=== PATIENT | female | born 1995 | race Caucasian/White ===

== ENCOUNTER 2019-07-18 18:09 | Inpatient (IN) ==
[2019-07-18] MEDS ORDERED: 0.9 % Sodium Chloride 1,000 ML IVC ONE (18:17)
[2019-07-18] MEDS ORDERED: Ketorolac 30 MG/ML VIAL IVP ONE (18:17)
[2019-07-18] MEDS ORDERED: Ondansetron 4 MG/2 ML VIAL IVP ONE (18:17)
[2019-07-18 18:45] LABS: Clarity,Urine Slightly Cloudy (Clear); Color,Urine Amber (Yellow)
[2019-07-18 18:50] LABS: Basophils % 0.2 %; Eosinophils # 0.2 K/mcL (0.0-0.6); Eosinophils % 1.1 %; Hematocrit 35.5 % (35.3-44.9); Immature Granulocytes % 0.8 % (0-4); Lymphocytes # 1.6 K/mcL (0.6-4.6); Lymphocytes % 8.1 %; Mean Corpuscular HGB Conc 33.8 g/dL (31.6-35.5); Mean Corpuscular Volume 82.8 fL (83.0-100.0); Mean Platelet Volume 9.2 fL (9.4-12.4); Monocytes # 1.4 K/mcL (0.0-1.3); Monocytes % 6.9 %; Platelet Count 155 K/mcL (140-400); Red Blood Count 4.29 M/mcL (3.82-4.97); Red Cell Distribution Width 12.9 % (11.5-14.5); Segmented Neutrophils % 82.9 %; White Blood Count 19.8 K/mcL (4.3-11.1)
[2019-07-18 18:53] LABS: Bacteria,Urine Few per hpf (None-Few); Mucus,Urine Few (Few); RBC,Urine 15-30 per hpf (0-3); Squamous Epithelial Cell,Urine Few per lpf (None-Few)
[2019-07-18 18:55] LABS: Neutrophils # 16.4 K/mcL (1.6-8.9)
[2019-07-18 19:05] LABS: BUN/Creatinine Ratio 12 (6-26); Blood Urea Nitrogen 7 mg/dL (6-20); Calcium 8.8 mg/dL (8.6-10.3); Carbon Dioxide 21 mEq/L (23-29); Chloride 100 mEq/L (98-107); Glucose 139 mg/dL (70-105); Osmolality,Calculated 268 (280-300); Potassium 3.1 mEq/L (3.5-5.1); Sodium 129 mEq/L (136-145); eGFR For African Americans > 60 (> 60); eGFR For Non-African Americans > 60 (> 60)
[2019-07-18] MEDS ORDERED: Potassium Chloride Elixir 20 MEQ/15 ML UDC PO ONE (19:15)
[2019-07-18] MEDS ORDERED: 0.9 % Sodium Chloride 1,000 ML IVC STA (19:29)
[2019-07-18] MEDS ORDERED: Naloxone 0.4 MG/ML INJ IVP PRN (20:03)
[2019-07-18] MEDS ORDERED: Ondansetron 4 MG/2 ML VIAL IVP PRN (20:03)
[2019-07-18] MEDS: 0.9 % Sodium Chloride 1,000 ML IVC SCH (20:21)
[2019-07-18] MEDS: (Buprenorphine Hcl/Naloxone Hcl [Suboxone 8 Mg-2 Mg SL) PO SCH (22:16)
[2019-07-19] MEDS: 0.9 % Sodium Chloride 1,000 ML IVC SCH (00:21)
[2019-07-19] MEDS: (Buprenorphine Hcl/Naloxone Hcl [Suboxone 8 Mg-2 Mg SL) PO SCH ×5 (04:00→16:30)
[2019-07-19 06:32] LABS: Hematocrit 31.9 % (35.3-44.9); Hemoglobin 10.5 g/dL (11.5-15.4); Mean Corpuscular HGB Conc 32.9 g/dL (31.6-35.5); Mean Corpuscular Hemoglobin 27.9 pg (28.0-33.3); Mean Corpuscular Volume 84.8 fL (83.0-100.0); Mean Platelet Volume 10.3 fL (9.4-12.4); Platelet Count 149 K/mcL (140-400); Red Blood Count 3.76 M/mcL (3.82-4.97); Red Cell Distribution Width 13.2 % (11.5-14.5); White Blood Count 13.9 K/mcL (4.3-11.1)
[2019-07-19 06:57] LABS: BUN/Creatinine Ratio 10 (6-26); Blood Urea Nitrogen 6 mg/dL (6-20); Carbon Dioxide 22 mEq/L (23-29); Chloride 108 mEq/L (98-107); Glucose 89 mg/dL (70-105); Osmolality,Calculated 277 (280-300); Sodium 135 mEq/L (136-145); eGFR For African Americans > 60 (> 60); eGFR For Non-African Americans > 60 (> 60)
[2019-07-19] MEDS ORDERED: Ibuprofen 600 MG TABLET PO ONE (10:34)
[2019-07-19] MEDS: Nicotine 14 MG PATCH.TD24 TD SCH (14:15)
[2019-07-19 20:18] LABS: % Iron Saturation 5 % (15-50); Iron 14 mcg/dL (50-170); Transferrin 213 mg/dL (203-362)
[2019-07-19 20:37] LABS: Ferritin 131 ng/mL (10-120)
[2019-07-19] MEDS: Lactobacillus 1 EACH CAP.SPRINK PO SCH (21:37)
[2019-07-19] MEDS: *HR* Buprenorphine HCl 8 MG TAB.SUBL SL SCH (21:37)
[2019-07-19] MEDS: Ibuprofen 600 MG TABLET PO PRN (21:47)
[2019-07-20] MEDS: *HR* Buprenorphine HCl 8 MG TAB.SUBL SL SCH ×2 (04:49→06:51)
[2019-07-20 06:50] VITALS: BP 107/74
[2019-07-20 06:53] LABS: Basophils % 0.3 %; Eosinophils # 0.3 K/mcL (0.0-0.6); Eosinophils % 2.7 %; Hematocrit 33.3 % (35.3-44.9); Hemoglobin 10.9 g/dL (11.5-15.4); Immature Granulocytes % 0.4 % (0-4); Lymphocytes # 1.9 K/mcL (0.6-4.6); Lymphocytes % 19.1 %; Mean Corpuscular HGB Conc 32.7 g/dL (31.6-35.5); Mean Corpuscular Hemoglobin 27.7 pg (28.0-33.3); Mean Corpuscular Volume 84.7 fL (83.0-100.0); Mean Platelet Volume 9.9 fL (9.4-12.4); Monocytes # 0.7 K/mcL (0.0-1.3); Monocytes % 6.8 %; Neutrophils # 6.9 K/mcL (1.6-8.9); Platelet Count 180 K/mcL (140-400); Red Blood Count 3.93 M/mcL (3.82-4.97); Red Cell Distribution Width 13.3 % (11.5-14.5); Segmented Neutrophils % 70.7 %; White Blood Count 9.7 K/mcL (4.3-11.1)
[2019-07-20] MEDS: Ibuprofen 600 MG TABLET PO PRN ×2 (06:54→08:24)
[2019-07-20 07:36] LABS: BUN/Creatinine Ratio 7 (6-26); Blood Urea Nitrogen 4 mg/dL (6-20); Calcium 8.7 mg/dL (8.6-10.3); Carbon Dioxide 25 mEq/L (23-29); Chloride 107 mEq/L (98-107); Glucose 87 mg/dL (70-105); Osmolality,Calculated 286 (280-300); Potassium 3.6 mEq/L (3.5-5.1); Sodium 140 mEq/L (136-145); eGFR For African Americans > 60 (> 60); eGFR For Non-African Americans > 60 (> 60)
[2019-07-20] MEDS: Nicotine 14 MG PATCH.TD24 TD SCH (08:25)
[2019-07-20] MEDS: Lactobacillus 1 EACH CAP.SPRINK PO SCH (08:25)
== END 2019-07-20 11:17 | disposition home or self-care (01) | DRG 463 ==
LOC: INPPIK 18:09 → EMEROOPIK 18:09 → INPPIK 20:00
PROVIDERS: ADMIT Internal Medicine; ATTEND Internal Medicine

== ENCOUNTER 2020-05-19 11:05 | Inpatient (IN) ==
[2020-05-19 11:41] LABS: Basophils % 0.1 %; Hematocrit 38.3 % (35.3-44.9); Hemoglobin 12.8 g/dL (11.5-15.4); Immature Granulocytes % 0.6 % (0-4); Lymphocytes # 0.7 K/mcL (0.6-4.6); Lymphocytes % 3.9 %; Mean Corpuscular HGB Conc 33.4 g/dL (31.6-35.5); Mean Corpuscular Hemoglobin 28.4 pg (28.0-33.3); Mean Corpuscular Volume 84.9 fL (83.0-100.0); Mean Platelet Volume 9.3 fL (9.4-12.4); Monocytes # 0.7 K/mcL (0.0-1.3); Monocytes % 4.3 %; Neutrophils # 15.2 K/mcL (1.6-8.9); Platelet Count 210 K/mcL (140-400); Red Blood Count 4.51 M/mcL (3.82-4.97); Red Cell Distribution Width 13.4 % (11.5-14.5); Segmented Neutrophils % 91.1 %; White Blood Count 16.7 K/mcL (4.3-11.1)
[2020-05-19] MEDS ORDERED: Ipratropium/Albuterol Neb 3 ML IH ONE ×3 (11:51→15:12)
[2020-05-19 12:00] LABS: Alanine Aminotransferase 9 Units/L (7-52); Albumin 4.4 g/dL (3.5-5.7); Albumin/Globulin Ratio 1.6 (1.1-2.2); Alkaline Phosphatase 74 Units/L (34-104); Aspartate Amino Transferase 20 Units/L (13-39); BUN/Creatinine Ratio 13 (6-26); Bilirubin,Total 0.6 mg/dL (0.3-1.0); Blood Urea Nitrogen 7 mg/dL (6-20); Carbon Dioxide 24 mEq/L (23-29); Chloride 102 mEq/L (98-107); Globulin 2.8 g/dL (2.4-3.5); Glucose 142 mg/dL (70-105); Magnesium 1.7 mg/dL (1.6-2.6); Osmolality,Calculated 284 (280-300); Potassium 4.1 mEq/L (3.5-5.1); Sodium 137 mEq/L (136-145); Total Protein 7.2 g/dL (6.4-8.9); eGFR For African Americans > 60 (> 60); eGFR For Non-African Americans > 60 (> 60)
[2020-05-19 12:01] LABS: Troponin I < 0.03 ng/mL (< 0.04)
[2020-05-19 12:06] LABS: Prothrombin Time 11.4 Seconds (9.4-12.1)
[2020-05-19] MEDS ORDERED: Ipratropium/Albuterol Neb 3 ML ONE (12:08)
[2020-05-19 13:32] LABS: ABG Base Excess -2 mEq/L (-2 to 3); ABG HCO3 23 mEq/L (21-27); ABG Oxygen Saturation 91 % (95-98); ABG PCO2 37 mmHg (35-45); ABG PO2 60 mmHg (85-104); ABG TCO2 24 mEq/L (20-26)
[2020-05-19] MEDS ORDERED: 0.9 % Sodium Chloride 1,000 ML IV ONE (14:40)
[2020-05-19] MEDS ORDERED: Ketorolac 30 MG/ML VIAL IVP ONE (14:42)
[2020-05-19] MEDS ORDERED: Ondansetron 4 MG/2 ML VIAL IVP ONE (14:59)
[2020-05-19] MEDS ORDERED: cefTRIAXone 1,000 MG in 0.9 % Sodium Chloride Mini Bag 100 ML IVPB ONE (15:12)
[2020-05-19] MEDS ORDERED: methylPREDNISolone 125 MG/2 ML VIAL IVP ONE (15:12)
[2020-05-19 15:57] LABS: Adenovirus Not Detected (Not Detect); Bordetella Pertussis Not Detected (Not Detect); Chlamydophila pneumoniae Not Detected (Not Detect); Coronavirus 229E Not Detected (Not Detect); Coronavirus HKU1 Not Detected (Not Detect); Coronavirus NL63 Not Detected (Not Detect); Coronavirus OC43 Not Detected (Not Detect); Human Metapneumovirus Not Detected (Not Detect); Human Rhinovirus/Enterovirus DETECTED (Not Detect); Influenza A Subtype 2009 H1 Not Detected (Not Detect); Influenza B Not Detected (Not Detect); Mycoplasma pneumoniae Not Detected (Not Detect); Parainfluenza Virus 1 Not Detected (Not Detect); Parainfluenza Virus 2 Not Detected (Not Detect); Parainfluenza Virus 3 Not Detected (Not Detect); Parainfluenza Virus 4 Not Detected (Not Detect); Respiratory Syncytial Virus Not Detected (Not Detect); SARS-CoV-2 Not Detected (Not Detect)
[2020-05-19] MEDS: 0.9 % Sodium Chloride 1,000 ML IVC SCH (16:03)
[2020-05-19] MEDS ORDERED: Naloxone 0.4 MG/ML INJ IVP PRN (16:49)
[2020-05-19] MEDS ORDERED: MOM Conc 10 ML UD.LIQ PO PRN (16:49)
[2020-05-19] MEDS ORDERED: Acetaminophen 325 MG TABLET PO PRN (16:49)
[2020-05-19] MEDS ORDERED: Ondansetron 4 MG/2 ML VIAL IVP PRN (16:49)
[2020-05-19] MEDS ORDERED: Mag Hydrox/Al Hydrox/Simeth 30 ML UDC PO PRN (16:49)
[2020-05-19] MEDS ORDERED: Albuterol 2.5 MG/3 ML NEBULIZER IH PRN (16:54)
[2020-05-19] MEDS ORDERED: Isovue-370 500 ML BOTTLE IVP ONE (16:58)
[2020-05-19] MEDS: BUPRENORPHINE NALOXONE PO SCH ×2 (17:54→23:11)
[2020-05-19] MEDS: Nicotine 14 MG PATCH.TD24 TD SCH (18:05)
[2020-05-19] MEDS: MethylPREDNISolone 40 MG/ML VIAL IVP SCH (18:05)
[2020-05-19] MEDS: Ipratropium/Albuterol Neb 3 ML IH SCH (19:12)
[2020-05-19] MEDS: Azithromycin 500 MG in 0.9 % Sodium Chloride 250 ML IVPB SCH (19:41)
[2020-05-19] MEDS ORDERED: *HR* Promethazine 25 MG/ML VIAL IVP PRN (20:12)
[2020-05-19 20:13] LABS: Bilirubin,Urine Negative (Negative); Blood,Urine Negative (Negative); Clarity,Urine Clear (Clear); Color,Urine Yellow (Yellow); Glucose,Urine (UA) 500 mg/dL (Normal); Ketones,Urine Negative (Negative); Leukocyte Esterase,Urine Negative (Negative); Nitrite,Urine Negative (Negative); Protein,Urine Negative (Neg-Trace); Specific Gravity,Urine 1.015 (1.010-1.025); Urobilinogen,Urine Normal (Normal)
[2020-05-19 20:45] LABS: Bacteria,Urine Few per hpf (None-Few); RBC,Urine 0-3 per hpf (0-3); Squamous Epithelial Cell,Urine Few per hpf (None-Few); WBC,Urine 0-3 per hpf (0-3)
[2020-05-19 21:31] LABS: Amphetamine Screen,Urine Negative ng/mL (Cutoff=1000); Barbiturate Screen,Urine Negative ng/mL (Cutoff=200); Benzodiazepines Screen,Urine Negative ng/mL (Cutoff=200); Cannabinoid Screen,Urine Negative ng/mL (Cutoff = 50); Cocaine Screen,Urine Negative ng/mL (Cutoff= 300); Opiate Screen,Urine Negative ng/mL (Cutoff=300); Phencyclidine Screen,Urine Negative ng/mL (Cutoff=25)
[2020-05-20] MEDS: Ipratropium/Albuterol Neb 3 ML IH SCH ×6 (00:09→20:34)
[2020-05-20] MEDS: MethylPREDNISolone 40 MG/ML VIAL IVP SCH ×4 (00:09→17:19)
[2020-05-20] MEDS: 0.9 % Sodium Chloride 1,000 ML IVC SCH ×3 (01:42→20:00)
[2020-05-20] MEDS: BUPRENORPHINE NALOXONE PO SCH ×2 (05:02→11:07)
[2020-05-20 05:25] LABS: Basophils % 0.1 %; Hematocrit 37.7 % (35.3-44.9); Hemoglobin 12.3 g/dL (11.5-15.4); Immature Granulocytes % 0.9 % (0-4); Lymphocytes # 0.7 K/mcL (0.6-4.6); Lymphocytes % 4.2 %; Mean Corpuscular HGB Conc 32.6 g/dL (31.6-35.5); Mean Corpuscular Hemoglobin 28.1 pg (28.0-33.3); Mean Corpuscular Volume 86.1 fL (83.0-100.0); Mean Platelet Volume 9.3 fL (9.4-12.4); Monocytes # 0.4 K/mcL (0.0-1.3); Monocytes % 2.3 %; Neutrophils # 15.4 K/mcL (1.6-8.9); Platelet Count 209 K/mcL (140-400); Red Blood Count 4.38 M/mcL (3.82-4.97); Red Cell Distribution Width 13.9 % (11.5-14.5); Segmented Neutrophils % 92.5 %; White Blood Count 16.6 K/mcL (4.3-11.1)
[2020-05-20 05:45] LABS: BUN/Creatinine Ratio 17 (6-26); Blood Urea Nitrogen 8 mg/dL (6-20); Calcium 8.3 mg/dL (8.6-10.3); Carbon Dioxide 24 mEq/L (23-29); Chloride 109 mEq/L (98-107); Glucose 123 mg/dL (70-105); Osmolality,Calculated 292 (280-300); Potassium 4.4 mEq/L (3.5-5.1); Sodium 141 mEq/L (136-145); eGFR For African Americans > 60 (> 60); eGFR For Non-African Americans > 60 (> 60)
[2020-05-20] MEDS: Nicotine 14 MG PATCH.TD24 TD SCH (08:10)
[2020-05-20] MEDS: cefTRIAXone 1,000 MG in 0.9 % Sodium Chloride Mini Bag 100 ML IVPB SCH (08:10)
[2020-05-20] MEDS: Budesonide/Formoterol 160/4.5 1 PUFF INH IH SCH (11:23)
[2020-05-20] MEDS: *HR* Buprenorphine HCl 8 MG TAB.SUBL SL SCH ×2 (17:19→22:34)
[2020-05-20] MEDS: Azithromycin 500 MG in 0.9 % Sodium Chloride 250 ML IVPB SCH (18:00)
[2020-05-21] MEDS: Ipratropium/Albuterol Neb 3 ML IH SCH ×4 (00:12→11:27)
[2020-05-21] MEDS: Budesonide/Formoterol 160/4.5 1 PUFF INH IH SCH ×2 (00:13→10:55)
[2020-05-21] MEDS: MethylPREDNISolone 40 MG/ML VIAL IVP SCH ×2 (01:26→05:34)
[2020-05-21] MEDS: 0.9 % Sodium Chloride 1,000 ML IVC SCH (04:15)
[2020-05-21] MEDS: *HR* Buprenorphine HCl 8 MG TAB.SUBL SL SCH (05:34)
[2020-05-21 05:40] LABS: Basophils % 0.1 %; Hematocrit 34.6 % (35.3-44.9); Hemoglobin 11.2 g/dL (11.5-15.4); Immature Granulocytes % 0.6 % (0-4); Lymphocytes # 1.1 K/mcL (0.6-4.6); Lymphocytes % 7.2 %; Mean Corpuscular HGB Conc 32.4 g/dL (31.6-35.5); Mean Corpuscular Hemoglobin 28.3 pg (28.0-33.3); Mean Corpuscular Volume 87.4 fL (83.0-100.0); Mean Platelet Volume 11.2 fL (9.4-12.4); Monocytes # 0.4 K/mcL (0.0-1.3); Monocytes % 2.8 %; Neutrophils # 13.6 K/mcL (1.6-8.9); Platelet Count 184 K/mcL (140-400); Red Blood Count 3.96 M/mcL (3.82-4.97); Red Cell Distribution Width 14.5 % (11.5-14.5); Segmented Neutrophils % 89.3 %; White Blood Count 15.2 K/mcL (4.3-11.1)
[2020-05-21 06:05] LABS: BUN/Creatinine Ratio 17 (6-26); Blood Urea Nitrogen 8 mg/dL (6-20); Calcium 8.2 mg/dL (8.6-10.3); Carbon Dioxide 22 mEq/L (23-29); Chloride 111 mEq/L (98-107); Glucose 121 mg/dL (70-105); Osmolality,Calculated 290 (280-300); Potassium 3.8 mEq/L (3.5-5.1); Sodium 140 mEq/L (136-145); eGFR For African Americans > 60 (> 60); eGFR For Non-African Americans > 60 (> 60)
[2020-05-21 06:36] VITALS: BP 117/79
[2020-05-21 06:43] LABS: Platelet Estimate Normal (Normal)
[2020-05-21] MEDS: Nicotine 14 MG PATCH.TD24 TD SCH (08:13)
[2020-05-21] MEDS: cefTRIAXone 1,000 MG in 0.9 % Sodium Chloride Mini Bag 100 ML IVPB SCH (08:13)
[2020-05-21] MEDS ORDERED: MethylPREDNISolone 40 MG/ML VIAL IVP SCH (18:00)
== END 2020-05-21 13:25 | disposition home or self-care (01) | DRG 720 ==
LOC: EMEROOPIK 11:05 → INPPIK 11:05
PROVIDERS: ADMIT Family Medicine; ATTEND Family Medicine